=== PATIENT | male | born 1980 | race Caucasian/White ===

== ENCOUNTER 2017-03-25 12:15 | Emergency (ER) | payer SELFPAY ==
[~2017-03-25] VITALS: Ht 175.2 cm; Wt 81.6 kg
[~2017-03-25 12:15] MED LIST: ACETAMINOPHEN500 M1 PO; ACID REDUCER PO; AMOXICILLIN500 M2 PO; AMOXICILLIN500 M3 PO; ANTIBIOTIC O500 U/GM TP; AUGMENTIN 875 M1 TAB PO; BACTRIM DS 8001 TA1 PO; CEPHALEXIN500 M1 PO; CIPRO500 MG PO; CIPROFLOXACIN500 MG PO; DICLOFENAC POTA50 MG PO; HYDROCODONE BIT1 T11 PO; IBU-8800 MG PO; KEFLEX500 MG PO; LOMOTIL 0.025 M1 TA1 PO; LOMOTIL 0.025 M1 TAB PO; MOTRIN800 MG PO; NAPROSYN500 MG PO; NORCO 10-325 T1 EACH PO; NORCO 5-325 TA1 EACH PO; PRILOSEC20 M2 PO; RITE AID BRAND PO; ROBITUSSIN DM120 ML PO; THERAGRAN1 TA2 PO; TRAMADOL HCL50 MG PO; TUMS500 MG PO; TYLENOL500 MG PO; VICODIN 5/500 505 MG PO; ZANTAC150 MG; ZANTAC150 MG PO; ZITHROMAX Z PA250 MG PO; ZOFRAN ODT4 MG SL; Zofran4 MG PO
[2017-03-25] MEDS ORDERED: CEPHALEXIN500 M1 PO (15:09)
[2017-03-25] MEDS ORDERED: NAPROSYN500 MG PO (15:09)
== END 2017-03-25 15:36 | disposition home or self-care (01) ==
LOC: ED 12:15
DX: L02.612 Cutaneous abscess of left foot (principal); F17.200 Nicotine dependence, unspecified, uncomplicated